=== PATIENT | female | born 1965 ===

== ENCOUNTER 2021-07-24 10:52 | Inpatient (IN) | payer OTHER ==
[2021-07-24] MEDS ORDERED: Sodium Chloride 0.9% 1000 ML 1,000 ML IV STA (11:32)
--- NOTE | 2021-07-24 11:32 | ERPHSYRPT ---
- History of Present Illness Time Seen by Provider: 07/24/21 11:25 Source: patient Exam Limitations: no limitations Patient Subjective Stated Complaint: PT states "I have been running a low temp at home and I was at school today and I got dizzy and went to the [facility]. They sent me here because they could not get a good blood pressure on me and I feel lightheaded and dizzy." Triage Nursing Assessment: Pt presented alert and oriented X 3, skin wpd Pt ambulates with a slow gait, able to speak in clear full sentences. Pt obese female short of breath when she moves. Pt resting comfortably on the cot, respirations come down when she rests on the cot. Physician History: This is a morbidly obese white female patient of Dr. Norton who presents with onset of dizziness with ambulation that came on relatively suddenly this morning. Patient states that she is chronically short of breath. But she does feel a bit more short of breath today. He is not on any anticoagulation therapy. She has no bleeding or clotting disorders. She has not noticed any bleeding of any kind anywhere. She denies chest pain. She denies abdominal pain. She was seen at the [facility] and they were having trouble obtaining a blood pressure. Upon arrival into the emergency department her heart rate was in the 115 to 125 bpm range. Her systolic blood pressure was 72. Patient denies any new medications. She has no blood pressure issues. Timing/Duration: today Severity: moderate Deficits: weak (And dizzy) Baseline/Normal Cognition: alert oriented x 3 Current Cognition: alert oriented x 3 Baseline Gait: walks w/o assistance Associated Symptoms: weakness, other (Dizziness) Allergies/Adverse Reactions: No Known Drug Allergies Allergy (Verified 07/24/21 11:15) Home Medications: No Reportable Medications [No Reported Medications] 07/24/21 [History] Hx Tetanus, Diphtheria Vaccination/Date Given: No Hx Influenza Vaccination/Date Given: Yes Hx Pneumococcal Vaccination/Date Given: No Immunizations Up to Date: Yes Travel Risk - International Travel Have you traveled outside of the country in past 3 weeks: No - Coronavirus Screening Are you exhibiting any of the following symptoms?: No Close contact with a COVID-19 positive Pt in past 14-21 Days: No - Vaccine Status Have you recieved a Covid-19 vaccination: Yes 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: [employer] - Review of Systems Constitutional: Weakness Eyes: No Symptoms Ears, Nose, & Throat: No Symptoms Respiratory: No Symptoms Cardiac: No Symptoms Abdominal/Gastrointestinal: No Symptoms Genitourinary Symptoms: No Symptoms Musculoskeletal: No Symptoms Skin: No Symptoms Neurological: Dizziness Psychological: No Symptoms Endocrine: No Symptoms Hematologic/Lymphatic: No Symptoms Immunological/Allergic: No Symptoms All Other Systems: Reviewed and Negative - Past Medical History Pertinent Past Medical History: No - Past Surgical History Past Surgical History: Yes Other Surgical History: jose - Social History Smoking Status: Never smoker Exposure to second hand smoke: No Drug Use: none Patient Lives Alone: No - Female History Hx Last Menstrual Period: 10/26/2020 Hx Now: No - Nursing Vital Signs Nursing Vital Signs: Initial Vital Signs Temperature 97.6 F 07/24/21 11:04 Pulse Rate 125 H 07/24/21 11:04 Respiratory Rate 28 H 07/24/21 11:04 Blood Pressure 70/48 07/24/21 11:04 O2 Sat by Pulse Oximetry 96 07/24/21 11:04 Pain Scale Pain Intensity 5 - Matilda Coma Scale Best Eye Response (Matilda): (4) open spontaneously Best Verbal Response ([place]): (5) oriented Best Motor Response (Matilda): (6) obeys commands Matilda Total: 15 - Physical Exam General Appearance: no apparent distress, alert, anxiety, obese Eye Exam: bilateral eye: normal inspection, PERRL, EOMI Ears, Nose, Throat Exam: dry mucous membranes Neck Exam: normal inspection, non-tender, supple, full range of motion Respiratory: normal breath sounds, lungs clear, No chest tenderness, No respiratory distress, No airway intact Cardiovascular: tachycardia Gastrointestinal: soft, normal bowel sounds, No tenderness Pelvic Exam: not done Rectal Exam: not done Back Exam: normal inspection, normal range of motion, No CVA tenderness, No vertebral tenderness Extremity Exam: normal inspection, normal range of motion, pelvis stable Mental Status: alert, 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 There is no comparison EKG available) Ordered Tests: Active Orders 24 hr Category Date Time Status Clean Catch Urine Specimen STAT Care 07/24/21 11:32 Active EKG-ER Only STAT Care 07/24/21 11:32 Active IV Insertion STAT Care 07/24/21 11:32 Active CBC W DIFF Stat Lab 07/24/21 11:50 Completed CMP Stat Lab 07/24/21 11:50 Completed MAGNESIUM Stat Lab 07/24/21 11:50 Completed Manual Differential NC Stat Lab 07/24/21 11:50 Completed TROPONIN Q3H Lab 07/24/21 11:50 Completed TROPONIN Q3H Lab 07/24/21 14:45 Ordered TROPONIN Q3H Lab 07/24/21 17:45 Ordered TROPONIN Q3H Lab 07/24/21 20:45 Ordered TROPONIN Q3H Lab 07/24/21 23:45 Ordered UA W/RFX UR CULTURE Stat Lab 07/24/21 11:32 Ordered Urine Triage Profile Stat Lab 07/24/21 11:32 Ordered Transfer Order Routine Transfer 07/24/21 Ordered Medication Summary Generic Name Dose Route Start Last Admin Trade Name Freq PRN Reason Stop Dose Admin Magnesium Oxide 400 mg 07/25/21 12:54 07/24/21 13:08 Mag-Ox 400 PO 07/25/21 12:55 400 mg STAT ONE Administration Discontinued Medications Generic Name Dose Route Start Last Admin Trade Name Freq PRN Reason Stop Dose Admin Sodium Chloride 1,000 mls @ 999 mls/hr 07/24/21 11:32 07/24/21 12:50 Sodium Chloride 0.9% 1000 Ml IV 07/24/21 12:32 Infused .Q1H1M STA Infusion Sodium Chloride Confirm 07/24/21 11:37 Sodium Chloride 0.9% 1000 Ml Administered 07/24/21 11:38 Dose 1,000 mls @ ud .ROUTE .STK-MED ONE Magnesium Oxide Confirm 07/24/21 13:07 Mag-Ox 400 Administered 07/24/21 13:08 Dose 400 mg .ROUTE .STK-MED ONE Potassium Chloride 10 meq 07/24/21 12:54 07/24/21 13:08 Klor Con 10 Meq PO 07/24/21 12:55 10 meq STAT ONE Administration Potassium Chloride Confirm 07/24/21 13:07 Klor Con 10 Meq Administered 07/24/21 13:08 Dose 10 meq PO .STK-MED ONE Lab/Rad Data: Laboratory Result Diagrams 07/24/21 11:50 07/24/21 11:50 Laboratory Results 07/24/21 07/24/21 07/24/21 Range/Units 12:48 12:45 12:23 WBC (4.0-10.5) K/mm3 RBC (4.1-5.4) M/mm3 Hgb (12.0-16.0) gm/dl Hct (35-47) % MCV (78-100) fl MCH (26-32) pg MCHC (32-36) g/dl RDW (11.5-14.0) % Plt Count (150-450) K/mm3 MPV (7.5-11.0) fl Segmented Neutrophils (36.0-66.0) % Band Neutrophils (0.0-2.0) % Lymphocytes (Manual) (24-44) % Monocytes (Manual) (0.0-12.0) % Hypochromia Platelet Estimate (NORMAL) RBC Morphology Polychromasia Anisocytosis Sodium (137-145) mmol/L Potassium (3.5-5.1) mmol/L Chloride (98-107) mmol/L Carbon Dioxide (22-30) mmol/L Anion Gap (5-15) MEQ/L BUN (7-17) mg/dL Creatinine (0.52-1.04) mg/dL Estimated GFR ML/MIN Glucose (74-106) mg/dL Calcium (8.4-10.2) mg/dL Magnesium (1.6-2.3) mg/dL Total Bilirubin (0.2-1.3) mg/dL AST (14-36) U/L ALT (0-35) U/L Alkaline Phosphatase (38-126) U/L Troponin I (0.000-0.034) ng/mL Serum Total Protein (6.3-8.2) g/dL Albumin (3.5-5.0) g/dL SARS-CoV-2 (PCR) NEGATIVE (NEGATIVE) ABO Group A Rh Factor POSITIVE Antibody Screen NEGATIVE (NEGATIVE) Crossmatch COMPATIBLE COMPATIBLE (COMPATIBLE) 07/24/21 07/24/21 07/24/21 Range/Units 11:50 11:50 11:50 WBC 13.2 H (4.0-10.5) K/mm3 RBC 3.14 L (4.1-5.4) M/mm3 Hgb 7.7 L (12.0-16.0) gm/dl Hct 26.2 L (35-47) % MCV 83.4 (78-100) fl MCH 24.5 L (26-32) pg MCHC 29.4 L (32-36) g/dl RDW 16.0 H (11.5-14.0) % Plt Count 488 H (150-450) K/mm3 MPV 9.1 (7.5-11.0) fl Segmented Neutrophils 43 (36.0-66.0) % Band Neutrophils 53 H (0.0-2.0) % Lymphocytes (Manual) 3 L (24-44) % Monocytes (Manual) 1 (0.0-12.0) % Hypochromia 1+ Platelet Estimate INCREASED (NORMAL) RBC Morphology ABNORMAL Polychromasia 1+ Anisocytosis 1+ Sodium 128 L (137-145) mmol/L Potassium 3.3 L (3.5-5.1) mmol/L Chloride 98 (98-107) mmol/L Carbon Dioxide 12 L* (22-30) mmol/L Anion Gap 20.4 H (5-15) MEQ/L BUN 19 H (7-17) mg/dL Creatinine 1.63 H (0.52-1.04) mg/dL Estimated GFR 35.1 ML/MIN Glucose 386 H (74-106) mg/dL Calcium 8.9 (8.4-10.2) mg/dL Magnesium 1.5 L (1.6-2.3) mg/dL Total Bilirubin 1.10 (0.2-1.3) mg/dL AST 27 (14-36) U/L ALT 25 (0-35) U/L Alkaline Phosphatase 309 H (38-126) U/L Troponin I < 0.012 (0.000-0.034) ng/mL Serum Total Protein 7.4 (6.3-8.2) g/dL Albumin 3.4 L (3.5-5.0) g/dL SARS-CoV-2 (PCR) (NEGATIVE) ABO Group Rh Factor Antibody Screen (NEGATIVE) Crossmatch (COMPATIBLE) - Progress Progress: improved Progress Note: 07/24/21 12:30 Medical decision making: This patient has symptomatic anemia. She is tachycardic she has low blood pressure and she is dizzy. She is also short of breath. I spoke with Dr. David Seaman who is covering for Dr. Norton today. She accepts her for admission. We will transfuse 2 units of blood and recheck her hemoglobin hematocrit tomorrow morning. 07/24/21 14:17 Patient has been asked 3 times to urinate force and is unable to do so. Patient does not want a straight catheterization. She is refusing. Discussed with Dr.: Shad Counseled pt/family regarding: lab results, diagnosis - Departure Departure Disposition: In-patient Admission Clinical Impression: Symptomatic anemia, Hypotension, Sinus tachycardia, Dizziness, Renal insufficiency, Hyponatremia, Hypokalemia, Hypomagnesemia, Hyperglycemia Condition: Fair Critical Care Time: Yes Critical Care Time(excluding separately billable procedures): Critical 30-74 mins Referrals: ADEBAYO NORTON MD [Primary Care Provider] -
[2021-07-24] MEDS ORDERED: Sodium Chloride 0.9% 1000 ML 1,000 ML ONE ×2 (11:37→14:28)
[2021-07-24 11:59] LABS: Hematocrit 26.2 % (35-47); Hemoglobin 7.7 gm/dl (12.0-16.0); Mean Cell Volume 83.4 fl (78-100); Mean Corpuscular Hemoglobin 24.5 pg (26-32); Mean Corpuscular Hgb Concent. 29.4 g/dl (32-36); Mean Platelet Volume 9.1 fl (7.5-11.0); Platelet Count 488 K/mm3 (150-450); Red Blood Count 3.14 M/mm3 (4.1-5.4); White Blood Count 13.2 K/mm3 (4.0-10.5)
[2021-07-24 12:08] LABS: ALBUMIN 3.4 g/dL (3.5-5.0); ANION GAP 20.4 MEQ/L (5-15); BILIRUBIN,TOTAL 1.1 mg/dL (0.2-1.3); Calcium 8.9 mg/dL (8.4-10.2); Creatinine 1 1.63 mg/dL (0.52-1.04); EST GLOMERULAR FILTRATION RATE 35.1 ML/MIN; MAGNESIUM 1.5 mg/dL (1.6-2.3); Potassium 3.3 mmol/L (3.5-5.1); Total Protein 7.4 g/dL (6.3-8.2)
[2021-07-24 12:34] LABS: BAND 53 % (0.0-2.0); Lymphocytes 3 % (24-44); Monocyte 1 % (0.0-12.0); Neutrophils 43 % (36.0-66.0); Platelet Estimate INCREASED (NORMAL); Total Cells Counted 100
[2021-07-24 12:35] LABS: ANISOCYTOSIS 1+; Hypochromia 1+; Polychromasia 1+
[2021-07-24] MEDS ORDERED: Klor Con 10 MEQ PO ONE ×2 (12:54→13:07)
[2021-07-24] MEDS ORDERED: MAG-OX 400 ONE (13:07)
[2021-07-24 13:36] LABS: ABO TYPING A; Antibody Screen NEGATIVE (NEGATIVE); RH TYPING POSITIVE
[2021-07-24 13:37] LABS: CROSS MATCH (PRBC) COMPATIBLE (COMPATIBLE)
[2021-07-24] MEDS ORDERED: TYLENOL 325 MG PO PRN (17:12)
[2021-07-24] MEDS ORDERED: Zofran 4 MG/2 ML VIAL IV PRN (17:12)
[2021-07-24 17:33] LABS: Appearance TURBID (CLEAR); Bacteria FEW /HPF (NEGATIVE); Bilirubin NEGATIVE (NEGATIVE); Blood MODERATE Ery/ul (0-5); Epithelial Cells MANY /HPF (FEW); Glucose 150 mg/dL (NEGATIVE); Ketones NEGATIVE (NEGATIVE); Leukocyte Esterase MODERATE (NEGATIVE); Mucus SLIGHT /HPF (NEGATIVE); Nitrite NEGATIVE (NEGATIVE); Protein,Urine Dip 100 (Negative); Urobilinogen NEGATIVE mg/dL (0-1); WBC >100 /HPF (0-5)
[2021-07-24 17:42] LABS: Amphetamine,Urine POSITIVE (NEGATIVE); Barbiturate,Urine NEGATIVE (NEGATIVE); Benzodiazepine,Urine NEGATIVE (NEGATIVE); Cocaine,Urine NEGATIVE (NEGATIVE); Methadone,Urine NEGATIVE (NEGATIVE); Opiate,Urine NEGATIVE (NEGATIVE); PCP,Urine NEGATIVE (NEGATIVE); THC,Urine NEGATIVE (NEGATIVE)
[2021-07-24] MEDS: Sodium Chloride 0.9% 1000 ML 1,000 ML IV SCH (18:35)
[2021-07-24] MEDS: PROTONIX 40 MG IV IV SCH (18:35)
[2021-07-24 19:56] LABS: Hematocrit 27.9 % (35-47); Hemoglobin 8.6 gm/dl (12.0-16.0)
[2021-07-24] MEDS: HUMULIN R SQ PRN (21:15)
[2021-07-25] MEDS: Sodium Chloride 0.9% 1000 ML 1,000 ML IV SCH (04:08)
[2021-07-25 05:18] LABS: Absolute Neutrophil Ct (ANC) 15.63 (1.4-6.9); BASOPHIL % 0.2 % (0.0-0.4); Basophil (Absolute #) 0.04 (0-0.4); Eosinophil % 0.6 % (0.00-5.0); Hematocrit 26.9 % (35-47); Hemoglobin 8.1 gm/dl (12.0-16.0); Lymphocyte (Absolute #) 1.49 (1.0-4.6); Lymphocytes % 8.4 % (24.0-44.0); Mean Cell Volume 82.5 fl (78-100); Mean Corpuscular Hemoglobin 24.8 pg (26-32); Mean Corpuscular Hgb Concent. 30.1 g/dl (32-36); Monocyte (Absolute #) 0.55 (0.0-1.3); Monocytes % 3.1 % (0.0-12.0); Neutrophil % 87.7 % (36.0-66.0); Platelet Count 419 K/mm3 (150-450); Red Blood Count 3.26 M/mm3 (4.1-5.4); Red Cell Distribution Width 15.9 % (11.5-14.0); White Blood Count 17.8 K/mm3 (4.0-10.5)
[2021-07-25 05:59] LABS: ALBUMIN 3.2 g/dL (3.5-5.0); ANION GAP 17.7 MEQ/L (5-15); BILIRUBIN,TOTAL 0.8 mg/dL (0.2-1.3); Calcium 8.6 mg/dL (8.4-10.2); Creatinine 1 2.02 mg/dL (0.52-1.04); EST GLOMERULAR FILTRATION RATE 27.4 ML/MIN; Potassium 4.4 mmol/L (3.5-5.1); Total Protein 7.1 g/dL (6.3-8.2)
[2021-07-25] MEDS: ROCEPHIN 1 Gm-D5w 50 ml Bag** 1 G/50 ML IVPB IV SCH (08:24)
[2021-07-25] MEDS: HUMULIN R SQ PRN ×4 (08:29→21:18)
--- NOTE | 2021-07-25 09:11 | PCM.HP ---
History of Present Illness - Chief Complaint Chief Complaint: Symptomatic anemia History of Present Illness: is a 55 year old female pt of Dr. Ngo, hasn't seen a physician in 5 years, who was admitted through ER with dizziness and hypotension, found to be anemic and transfused. Her hgb was 7.7 initially, and after 2 units PRBC was 8.6. This morning it is down to 8.1. She denies any melena or hematochezia but does take naproxen every morning. Her LMP was 10/22, but the previous one before that was 12/23. She was found to have A1c of 13.14, but denies any history of diabetes previously. She was exposed to a covid + student 8d ago; has tested negative x 2 since then. Fully vaccinated (re: covid). - Review of Systems Constitutional: Fever (6d ago to 101.8 and has continued intermittently.), Chills Respiratory: Cough, Short Of Breath Cardiac: Edema (LE if up a lot and with IV fluids; watches her salt) Abdominal/Gastrointestinal: Constipation (loos stools last night after having Mg) Neurological: Headache Psychological: No Anxiety, No Depression, No Suicidal Ideations, No Homicidal Ideations Medications & Allergies Home Medications: Home Medication List Fexofenadine/Pseudoephedrine [Antonieta-D 24 Hour Tablet] 1 each PO DAILY 07/24/21 [History Confirmed 07/24/21] Allergies/Adverse Reactions: Allergies Allergy/AdvReac Type Severity Reaction Status Date / Time No Known Drug Allergies Allergy Verified 07/24/21 17:19 - Past Medical History Past Medical History: No - Female History Hx Last Menstrual Period: 10/26/2020 Are you now?: No - Past Surgical History Past Surgical History: Yes GI Surgical History: Cholecystectomy Musculskeletal Surgical Hx: Orthopedic Surgery Other Surgical History: jose, bone spurs from right - Social History Smoking Status: Never smoker Exposure to second hand smoke: No Alcohol: Rarely Drug Use: none - Physical Exam Vital Signs: Vital Signs - 24 hr Temp Pulse Resp BP Pulse Ox 07/25/21 07:22 96.8 F 80 18 112/59 97 07/25/21 04:00 96.9 F 98 H 20 95/54 95 07/25/21 00:00 97.5 F 108 H 27 H 96/58 94 L 07/24/21 20:00 97.3 F 106 H 20 97/55 98 07/24/21 17:20 97.5 F 112 H 22 97/56 96 07/24/21 16:55 97.8 F 104 H 20 100/79 98 07/24/21 14:30 97.5 F 112 H 24 96/56 98 07/24/21 14:23 96 07/24/21 13:37 118 H 22 76/58 98 07/24/21 12:05 97.6 F 110 H 20 79/51 98 07/24/21 11:04 97.6 F 125 H 28 H 70/48 96 General Appearance: no apparent distress, obese (morbidly) Neurologic Exam: oriented x 3, cooperative, normal mood/affect Eye Exam: eyes nml inspection Ears, Nose, Throat Exam: moist mucous membranes Neck Exam: normal inspection, non-tender, No lymphadenopathy Respiratory Exam: normal breath sounds, lungs clear, No crackles/rales, No rhonchi, No wheezing Cardiovascular Exam: regular rate/rhythm, normal heart sounds, No murmur Gastrointestinal/Abdomen Exam: soft, normal bowel sounds, No tenderness, No distention, No mass, No guarding, No rebound Back Exam: normal inspection, No CVA tenderness, No rash Extremity Exam: normal inspection, swelling (1+ pretibial edema on L) Skin Exam: normal color, warm, dry, No rash Results - Labs Lab/Micro Results: Lab Results-Last 24 Hours 07/24/21 07/24/21 07/24/21 Range/Units 11:50 11:50 11:50 WBC 13.2 H (4.0-10.5) K/mm3 RBC 3.14 L (4.1-5.4) M/mm3 Hgb 7.7 L (12.0-16.0) gm/dl Hct 26.2 L (35-47) % MCV 83.4 (78-100) fl MCH 24.5 L (26-32) pg MCHC 29.4 L (32-36) g/dl RDW 16.0 H (11.5-14.0) % Plt Count 488 H (150-450) K/mm3 MPV 9.1 (7.5-11.0) fl Gran % (36.0-66.0) % Eos # (Auto) (0-0.5) Absolute Lymphs (auto) (1.0-4.6) Absolute Monos (auto) (0.0-1.3) Lymphocytes % (24.0-44.0) % Monocytes % (0.0-12.0) % Eosinophils % (0.00-5.0) % Basophils % (0.0-0.4) % Absolute Granulocytes (1.4-6.9) Segmented Neutrophils 43 (36.0-66.0) % Band Neutrophils 53 H (0.0-2.0) % Lymphocytes (Manual) 3 L (24-44) % Monocytes (Manual) 1 (0.0-12.0) % Basophils # (0-0.4) Hypochromia 1+ Platelet Estimate INCREASED (NORMAL) RBC Morphology ABNORMAL Polychromasia 1+ Anisocytosis 1+ Sodium 128 L (137-145) mmol/L Potassium 3.3 L (3.5-5.1) mmol/L Chloride 98 (98-107) mmol/L Carbon Dioxide 12 L* (22-30) mmol/L Anion Gap 20.4 H (5-15) MEQ/L BUN 19 H (7-17) mg/dL Creatinine 1.63 H (0.52-1.04) mg/dL Estimated GFR 35.1 ML/MIN Glucose 386 H (74-106) mg/dL POC Glucometer (74 to 106) mg/dL Hemoglobin A1c (4.5-6.0) % Calcium 8.9 (8.4-10.2) mg/dL Magnesium 1.5 L (1.6-2.3) mg/dL Total Bilirubin 1.10 (0.2-1.3) mg/dL AST 27 (14-36) U/L ALT 25 (0-35) U/L Alkaline Phosphatase 309 H (38-126) U/L Troponin I < 0.012 (0.000-0.034) ng/mL Serum Total Protein 7.4 (6.3-8.2) g/dL Albumin 3.4 L (3.5-5.0) g/dL Urine Color (YELLOW) Urine Appearance (CLEAR) Urine pH (5-6) Ur Specific [place] (1.005-1.025) Urine Protein (Negative) Urine Ketones (NEGATIVE) Urine Blood (0-5) Milind/ul Urine Nitrite (NEGATIVE) Urine Bilirubin (NEGATIVE) Urine Urobilinogen (0-1) mg/dL Ur Leukocyte Esterase (NEGATIVE) Urine WBC (Auto) (0-5) /HPF Urine RBC (Auto) (0-2) /HPF U Epithel Cells (Auto) (FEW) /HPF Urine Bacteria (Auto) (NEGATIVE) /HPF Urine Mucus (Auto) (NEGATIVE) /HPF Urine Culture Reflexed (NO) Urine Glucose (NEGATIVE) mg/dL Urine Opiates Level (NEGATIVE) Ur Methadone (NEGATIVE) Urine Barbiturates (NEGATIVE) Ur Phencyclidine (PCP) (NEGATIVE) Urine Amphetamine (NEGATIVE) U Benzodiazepine Level (NEGATIVE) Urine Cocaine (NEGATIVE) Urine Marijuana (THC) (NEGATIVE) SARS-CoV-2 (PCR) (NEGATIVE) ABO Group Rh Factor Antibody Screen (NEGATIVE) Crossmatch (COMPATIBLE) 07/24/21 07/24/21 07/24/21 Range/Units 11:53 12:23 12:45 WBC (4.0-10.5) K/mm3 RBC (4.1-5.4) M/mm3 Hgb (12.0-16.0) gm/dl Hct (35-47) % MCV (78-100) fl MCH (26-32) pg MCHC (32-36) g/dl RDW (11.5-14.0) % Plt Count (150-450) K/mm3 MPV (7.5-11.0) fl Gran % (36.0-66.0) % Eos # (Auto) (0-0.5) Absolute Lymphs (auto) (1.0-4.6) Absolute Monos (auto) (0.0-1.3) Lymphocytes % (24.0-44.0) % Monocytes % (0.0-12.0) % Eosinophils % (0.00-5.0) % Basophils % (0.0-0.4) % Absolute Granulocytes (1.4-6.9) Segmented Neutrophils (36.0-66.0) % Band Neutrophils (0.0-2.0) % Lymphocytes (Manual) (24-44) % Monocytes (Manual) (0.0-12.0) % Basophils # (0-0.4) Hypochromia Platelet Estimate (NORMAL) RBC Morphology Polychromasia Anisocytosis Sodium (137-145) mmol/L Potassium (3.5-5.1) mmol/L Chloride (98-107) mmol/L Carbon Dioxide (22-30) mmol/L Anion Gap (5-15) MEQ/L BUN (7-17) mg/dL Creatinine (0.52-1.04) mg/dL Estimated GFR ML/MIN Glucose (74-106) mg/dL POC Glucometer (74 to 106) mg/dL Hemoglobin A1c 13.14 H (4.5-6.0) % Calcium (8.4-10.2) mg/dL Magnesium (1.6-2.3) mg/dL Total Bilirubin (0.2-1.3) mg/dL AST (14-36) U/L ALT (0-35) U/L Alkaline Phosphatase (38-126) U/L Troponin I (0.000-0.034) ng/mL Serum Total Protein (6.3-8.2) g/dL Albumin (3.5-5.0) g/dL Urine Color (YELLOW) Urine Appearance (CLEAR) Urine pH (5-6) Ur Specific [place] (1.005-1.025) Urine Protein (Negative) Urine Ketones (NEGATIVE) Urine Blood (0-5) Milind/ul Urine Nitrite (NEGATIVE) Urine Bilirubin (NEGATIVE) Urine Urobilinogen (0-1) mg/dL Ur Leukocyte Esterase (NEGATIVE) Urine WBC (Auto) (0-5) /HPF Urine RBC (Auto) (0-2) /HPF U Epithel Cells (Auto) (FEW) /HPF Urine Bacteria (Auto) (NEGATIVE) /HPF Urine Mucus (Auto) (NEGATIVE) /HPF Urine Culture Reflexed (NO) Urine Glucose (NEGATIVE) mg/dL Urine Opiates Level (NEGATIVE) Ur Methadone (NEGATIVE) Urine Barbiturates (NEGATIVE) Ur Phencyclidine (PCP) (NEGATIVE) Urine Amphetamine (NEGATIVE) U Benzodiazepine Level (NEGATIVE) Urine Cocaine (NEGATIVE) Urine Marijuana (THC) (NEGATIVE) SARS-CoV-2 (PCR) (NEGATIVE) ABO Group A Rh Factor POSITIVE Antibody Screen NEGATIVE (NEGATIVE) Crossmatch COMPATIBLE COMPATIBLE (COMPATIBLE) 07/24/21 07/24/21 07/24/21 Range/Units 12:48 15:25 17:20 WBC (4.0-10.5) K/mm3 RBC (4.1-5.4) M/mm3 Hgb (12.0-16.0) gm/dl Hct (35-47) % MCV (78-100) fl MCH (26-32) pg MCHC (32-36) g/dl RDW (11.5-14.0) % Plt Count (150-450) K/mm3 MPV (7.5-11.0) fl Gran % (36.0-66.0) % Eos # (Auto) (0-0.5) Absolute Lymphs (auto) (1.0-4.6) Absolute Monos (auto) (0.0-1.3) Lymphocytes % (24.0-44.0) % Monocytes % (0.0-12.0) % Eosinophils % (0.00-5.0) % Basophils % (0.0-0.4) % Absolute Granulocytes (1.4-6.9) Segmented Neutrophils (36.0-66.0) % Band Neutrophils (0.0-2.0) % Lymphocytes (Manual) (24-44) % Monocytes (Manual) (0.0-12.0) % Basophils # (0-0.4) Hypochromia Platelet Estimate (NORMAL) RBC Morphology Polychromasia Anisocytosis Sodium (137-145) mmol/L Potassium (3.5-5.1) mmol/L Chloride (98-107) mmol/L Carbon Dioxide (22-30) mmol/L Anion Gap (5-15) MEQ/L BUN (7-17) mg/dL Creatinine (0.52-1.04) mg/dL Estimated GFR ML/MIN Glucose (74-106) mg/dL POC Glucometer (74 to 106) mg/dL Hemoglobin A1c (4.5-6.0) % Calcium (8.4-10.2) mg/dL Magnesium (1.6-2.3) mg/dL Total Bilirubin (0.2-1.3) mg/dL AST (14-36) U/L ALT (0-35) U/L Alkaline Phosphatase (38-126) U/L Troponin I < 0.012 (0.000-0.034) ng/mL Serum Total Protein (6.3-8.2) g/dL Albumin (3.5-5.0) g/dL Urine Color LEONARDO (YELLOW) Urine Appearance TURBID (CLEAR) Urine pH 5.0 (5-6) Ur Specific [place] 1.020 (1.005-1.025) Urine Protein 100 (Negative) Urine Ketones NEGATIVE (NEGATIVE) Urine Blood MODERATE (0-5) Milind/ul Urine Nitrite NEGATIVE (NEGATIVE) Urine Bilirubin NEGATIVE (NEGATIVE) Urine Urobilinogen NEGATIVE (0-1) mg/dL Ur Leukocyte Esterase MODERATE (NEGATIVE) Urine WBC (Auto) >100 (0-5) /HPF Urine RBC (Auto) 16-25 (0-2) /HPF U Epithel Cells (Auto) MANY (FEW) /HPF Urine Bacteria (Auto) FEW (NEGATIVE) /HPF Urine Mucus (Auto) SLIGHT (NEGATIVE) /HPF Urine Culture Reflexed YES (NO) Urine Glucose 150 (NEGATIVE) mg/dL Urine Opiates Level (NEGATIVE) Ur Methadone (NEGATIVE) Urine Barbiturates (NEGATIVE) Ur Phencyclidine (PCP) (NEGATIVE) Urine Amphetamine (NEGATIVE) U Benzodiazepine Level (NEGATIVE) Urine Cocaine (NEGATIVE) Urine Marijuana (THC) (NEGATIVE) SARS-CoV-2 (PCR) NEGATIVE (NEGATIVE) ABO Group Rh Factor Antibody Screen (NEGATIVE) Crossmatch (COMPATIBLE) 07/24/21 07/24/21 07/24/21 Range/Units 17:20 19:48 19:48 WBC (4.0-10.5) K/mm3 RBC (4.1-5.4) M/mm3 Hgb 8.6 L (12.0-16.0) gm/dl Hct 27.9 L (35-47) % MCV (78-100) fl MCH (26-32) pg MCHC (32-36) g/dl RDW (11.5-14.0) % Plt Count (150-450) K/mm3 MPV (7.5-11.0) fl Gran % (36.0-66.0) % Eos # (Auto) (0-0.5) Absolute Lymphs (auto) (1.0-4.6) Absolute Monos (auto) (0.0-1.3) Lymphocytes % (24.0-44.0) % Monocytes % (0.0-12.0) % Eosinophils % (0.00-5.0) % Basophils % (0.0-0.4) % Absolute Granulocytes (1.4-6.9) Segmented Neutrophils (36.0-66.0) % Band Neutrophils (0.0-2.0) % Lymphocytes (Manual) (24-44) % Monocytes (Manual) (0.0-12.0) % Basophils # (0-0.4) Hypochromia Platelet Estimate (NORMAL) RBC Morphology Polychromasia Anisocytosis Sodium (137-145) mmol/L Potassium (3.5-5.1) mmol/L Chloride (98-107) mmol/L Carbon Dioxide (22-30) mmol/L Anion Gap (5-15) MEQ/L BUN (7-17) mg/dL Creatinine (0.52-1.04) mg/dL Estimated GFR ML/MIN Glucose 444 H (74-106) mg/dL POC Glucometer (74 to 106) mg/dL Hemoglobin A1c (4.5-6.0) % Calcium (8.4-10.2) mg/dL Magnesium (1.6-2.3) mg/dL Total Bilirubin (0.2-1.3) mg/dL AST (14-36) U/L ALT (0-35) U/L Alkaline Phosphatase (38-126) U/L Troponin I (0.000-0.034) ng/mL Serum Total Protein (6.3-8.2) g/dL Albumin (3.5-5.0) g/dL Urine Color (YELLOW) Urine Appearance (CLEAR) Urine pH (5-6) Ur Specific [place] (1.005-1.025) Urine Protein (Negative) Urine Ketones (NEGATIVE) Urine Blood (0-5) Milind/ul Urine Nitrite (NEGATIVE) Urine Bilirubin (NEGATIVE) Urine Urobilinogen (0-1) mg/dL Ur Leukocyte Esterase (NEGATIVE) Urine WBC (Auto) (0-5) /HPF Urine RBC (Auto) (0-2) /HPF U Epithel Cells (Auto) (FEW) /HPF Urine Bacteria (Auto) (NEGATIVE) /HPF Urine Mucus (Auto) (NEGATIVE) /HPF Urine Culture Reflexed (NO) Urine Glucose (NEGATIVE) mg/dL Urine Opiates Level NEGATIVE (NEGATIVE) Ur Methadone NEGATIVE (NEGATIVE) Urine Barbiturates NEGATIVE (NEGATIVE) Ur Phencyclidine (PCP) NEGATIVE (NEGATIVE) Urine Amphetamine POSITIVE (NEGATIVE) U Benzodiazepine Level NEGATIVE (NEGATIVE) Urine Cocaine NEGATIVE (NEGATIVE) Urine Marijuana (THC) NEGATIVE (NEGATIVE) SARS-CoV-2 (PCR) (NEGATIVE) ABO Group Rh Factor Antibody Screen (NEGATIVE) Crossmatch (COMPATIBLE) 07/25/21 07/25/21 07/25/21 Range/Units 04:57 04:57 04:57 WBC 17.8 H (4.0-10.5) K/mm3 RBC 3.26 L (4.1-5.4) M/mm3 Hgb 8.1 L (12.0-16.0) gm/dl Hct 26.9 L (35-47) % MCV 82.5 (78-100) fl MCH 24.8 L (26-32) pg MCHC 30.1 L (32-36) g/dl RDW 15.9 H (11.5-14.0) % Plt Count 419 (150-450) K/mm3 MPV 9.0 (7.5-11.0) fl Gran % 87.7 H (36.0-66.0) % Eos # (Auto) 0.10 (0-0.5) Absolute Lymphs (auto) 1.49 (1.0-4.6) Absolute Monos (auto) 0.55 (0.0-1.3) Lymphocytes % 8.4 L (24.0-44.0) % Monocytes % 3.1 (0.0-12.0) % Eosinophils % 0.6 (0.00-5.0) % Basophils % 0.2 (0.0-0.4) % Absolute Granulocytes 15.63 H (1.4-6.9) Segmented Neutrophils (36.0-66.0) % Band Neutrophils (0.0-2.0) % Lymphocytes (Manual) (24-44) % Monocytes (Manual) (0.0-12.0) % Basophils # 0.04 (0-0.4) Hypochromia Platelet Estimate (NORMAL) RBC Morphology Polychromasia Anisocytosis Sodium 129 L (137-145) mmol/L Potassium 4.4 D (3.5-5.1) mmol/L Chloride 99 (98-107) mmol/L Carbon Dioxide 17 L (22-30) mmol/L Anion Gap 17.7 H (5-15) MEQ/L BUN 26 H (7-17) mg/dL Creatinine 2.02 H (0.52-1.04) mg/dL Estimated GFR 27.4 ML/MIN Glucose 297 H (74-106) mg/dL POC Glucometer (74 to 106) mg/dL Hemoglobin A1c (4.5-6.0) % Calcium 8.6 (8.4-10.2) mg/dL Magnesium 1.6 (1.6-2.3) mg/dL Total Bilirubin 0.80 (0.2-1.3) mg/dL AST 22 (14-36) U/L ALT 16 (0-35) U/L Alkaline Phosphatase 230 H (38-126) U/L Troponin I (0.000-0.034) ng/mL Serum Total Protein 7.1 (6.3-8.2) g/dL Albumin 3.2 L (3.5-5.0) g/dL Urine Color (YELLOW) Urine Appearance (CLEAR) Urine pH (5-6) Ur Specific [place] (1.005-1.025) Urine Protein (Negative) Urine Ketones (NEGATIVE) Urine Blood (0-5) Milind/ul Urine Nitrite (NEGATIVE) Urine Bilirubin (NEGATIVE) Urine Urobilinogen (0-1) mg/dL Ur Leukocyte Esterase (NEGATIVE) Urine WBC (Auto) (0-5) /HPF Urine RBC (Auto) (0-2) /HPF U Epithel Cells (Auto) (FEW) /HPF Urine Bacteria (Auto) (NEGATIVE) /HPF Urine Mucus (Auto) (NEGATIVE) /HPF Urine Culture Reflexed (NO) Urine Glucose (NEGATIVE) mg/dL Urine Opiates Level (NEGATIVE) Ur Methadone (NEGATIVE) Urine Barbiturates (NEGATIVE) Ur Phencyclidine (PCP) (NEGATIVE) Urine Amphetamine (NEGATIVE) U Benzodiazepine Level (NEGATIVE) Urine Cocaine (NEGATIVE) Urine Marijuana (THC) (NEGATIVE) SARS-CoV-2 (PCR) (NEGATIVE) ABO Group Rh Factor Antibody Screen (NEGATIVE) Crossmatch (COMPATIBLE) 07/25/21 Range/Units 07:06 WBC (4.0-10.5) K/mm3 RBC (4.1-5.4) M/mm3 Hgb (12.0-16.0) gm/dl Hct (35-47) % MCV (78-100) fl MCH (26-32) pg MCHC (32-36) g/dl RDW (11.5-14.0) % Plt Count (150-450) K/mm3 MPV (7.5-11.0) fl Gran % (36.0-66.0) % Eos # (Auto) (0-0.5) Absolute Lymphs (auto) (1.0-4.6) Absolute Monos (auto) (0.0-1.3) Lymphocytes % (24.0-44.0) % Monocytes % (0.0-12.0) % Eosinophils % (0.00-5.0) % Basophils % (0.0-0.4) % Absolute Granulocytes (1.4-6.9) Segmented Neutrophils (36.0-66.0) % Band Neutrophils (0.0-2.0) % Lymphocytes (Manual) (24-44) % Monocytes (Manual) (0.0-12.0) % Basophils # (0-0.4) Hypochromia Platelet Estimate (NORMAL) RBC Morphology Polychromasia Anisocytosis Sodium (137-145) mmol/L Potassium (3.5-5.1) mmol/L Chloride (98-107) mmol/L Carbon Dioxide (22-30) mmol/L Anion Gap (5-15) MEQ/L BUN (7-17) mg/dL Creatinine (0.52-1.04) mg/dL Estimated GFR ML/MIN Glucose (74-106) mg/dL POC Glucometer 253 H (74 to 106) mg/dL Hemoglobin A1c (4.5-6.0) % Calcium (8.4-10.2) mg/dL Magnesium (1.6-2.3) mg/dL Total Bilirubin (0.2-1.3) mg/dL AST (14-36) U/L ALT (0-35) U/L Alkaline Phosphatase (38-126) U/L Troponin I (0.000-0.034) ng/mL Serum Total Protein (6.3-8.2) g/dL Albumin (3.5-5.0) g/dL Urine Color (YELLOW) Urine Appearance (CLEAR) Urine pH (5-6) Ur Specific [place] (1.005-1.025) Urine Protein (Negative) Urine Ketones (NEGATIVE) Urine Blood (0-5) Milind/ul Urine Nitrite (NEGATIVE) Urine Bilirubin (NEGATIVE) Urine Urobilinogen (0-1) mg/dL Ur Leukocyte Esterase (NEGATIVE) Urine WBC (Auto) (0-5) /HPF Urine RBC (Auto) (0-2) /HPF U Epithel Cells (Auto) (FEW) /HPF Urine Bacteria (Auto) (NEGATIVE) /HPF Urine Mucus (Auto) (NEGATIVE) /HPF Urine Culture Reflexed (NO) Urine Glucose (NEGATIVE) mg/dL Urine Opiates Level (NEGATIVE) Ur Methadone (NEGATIVE) Urine Barbiturates (NEGATIVE) Ur Phencyclidine (PCP) (NEGATIVE) Urine Amphetamine (NEGATIVE) U Benzodiazepine Level (NEGATIVE) Urine Cocaine (NEGATIVE) Urine Marijuana (THC) (NEGATIVE) SARS-CoV-2 (PCR) (NEGATIVE) ABO Group Rh Factor Antibody Screen (NEGATIVE) Crossmatch (COMPATIBLE) Accuchecks Date 07/25/21 Date 07/24/21 Time 22:00 Assessment/Plan (1) Anemia Current Visit: Yes Status: Acute Qualifiers: Anemia type: iron deficiency Iron deficiency anemia type: unspecified iron deficiency Qualified Code(s): D50.9 - Iron deficiency anemia, unspecified Assessment & Plan: will consult surgery for EGD/colonoscopy tomorrow. Chronic NSAID use. Code(s): D64.9 - ANEMIA, UNSPECIFIED (2) UTI (urinary tract infection) Current Visit: Yes Status: Acute Qualifiers: Urinary tract infection type: acute cystitis Assessment & Plan: started rocephin Code(s): N39.0 - URINARY TRACT INFECTION, SITE NOT SPECIFIED (3) Diabetes mellitus type II, uncontrolled Current Visit: Yes Status: Acute Qualifiers: Glycemic state: with hyperglycemia Qualified Code(s): E11.65 - Type 2 diabetes mellitus with hyperglycemia Assessment & Plan: start insulin here Code(s): E11.65 - TYPE 2 DIABETES MELLITUS WITH HYPERGLYCEMIA (4) Hyponatremia Current Visit: Yes Status: Acute Code(s): E87.1 - HYPO-OSMOLALITY AND HYPONATREMIA (5) Renal insufficiency Current Visit: Yes Status: Acute Assessment & Plan: unsure if any chronic component. may also be related to NSAIDs.
[2021-07-25] MEDS: PROTONIX 40 MG IV IV SCH (09:17)
[2021-07-25] MEDS ORDERED: FEXOFENADINE PO SCH (10:00)
[2021-07-25] MEDS ORDERED: PSEUDOEPHEDRINE PO SCH (10:00)
[2021-07-25] MEDS: CLARITIN 10 MG PO SCH (11:07)
--- NOTE | 2021-07-25 11:57 | XRAY ---
Exam: CT of the abdomen and pelvis without IV contrast from 07/25/2021. CTDI: 25.34 mGy Comparison: CT of the abdomen and pelvis without IV contrast from 01/01/2009. Indication: 55-year-old female with vaginal bleeding. Technique: Non-IV contrast axial images were obtained through the abdomen and pelvis. Reconstructed coronal and sagittal images were created and reviewed. No oral contrast was given. Findings: The patient is again morbidly obese. Some granulomatous calcifications are seen at the posterior margin of the right infrahilar projection. Otherwise, the visualized lung bases appear essentially unremarkable. Prominent epicardial fat pads are seen. There is some image degradation on a number of the images, perhaps due to patient motion, the patient's large size, or combination of both. In any event, there appears to be new moderate hepatosplenomegaly. Craniocaudal dimension of the right lobe of the liver is at least 24.2 cm on coronal image #98. Greatest craniocaudal dimension of the spleen is about 16.4 cm on coronal image #118. Both of these findings appear to be new from 01/01/2009. I believe there is some diffuse hepatic steatosis. Evaluation of the solid organs is limited without IV contrast and due to the CT artifact/noise. I see no gross intrahepatic biliary duct distention. The patient has undergone interval cholecystectomy with surgical clip seen in the subhepatic space. Scattered calcified splenic granulomas are seen consistent with old granulomatous disease. The pancreas appears grossly unremarkable. I cannot exclude a small diverticulum within the duodenal sweep on axial image #42. The adrenal glands appear of normal size and configuration. The right kidney has an altered transverse axis. It is relatively prominent in size. A new significant finding is the presence of multiple calcifications within the right kidney consistent with nephrolithiasis. I see no obvious hydronephrosis. The left kidney also reveals at least several calcifications within it consistent with nephrolithiasis. In addition, there is a 7.4 mm in diameter oval calcification within the left renal pelvis on axial image #41. I do not see significant left-sided hydronephrosis. However, there is significant scattered left renal cortical thinning and cortical scarring as compared to 01/01/2009 representing an unfavorable change. This indicates chronic renal disease. Greatest craniocaudal dimension of the left kidney on sagittal image #156 is 9.5 cm. A portion of the right psoas muscle within the lower abdomen appears larger than that seen on the left. The reason for this is not clear. There is no evidence of abdominal aortic aneurysm. No abnormal retroperitoneal lymphadenopathy is seen. Several small shoddy lymph nodes are seen between the IVC and distal abdominal aorta. These are nonspecific. I see no free intraperitoneal air or ventral abdominal wall hernia. The abdomen is protuberant with much intraperitoneal and subcutaneous fat. Within the pelvis, the uterus is anteflexed and appears of unremarkable size. A definite mass is not seen. The urinary bladder is mildly distended and appears grossly unremarkable. I see no gross abnormality of the ovaries on the axial or coronal images. I cannot clearly identify the appendix within the right lower quadrant, but no secondary findings of appendicitis are seen. There is no evidence of bowel obstruction. No free intraperitoneal fluid is seen within the pelvis. No other pelvic mass or definitive abnormal pelvic lymphadenopathy is seen. Each groin appears grossly unremarkable. The skeleton reveals no acute fracture or aggressive bone lesion. Bilateral facet joint arthropathy is seen at L4-L5 and L5-S1. Impression: 1. The study is limited, partly due to the lack of IV contrast. However, there is also some increased CT noise, perhaps due to the patient's large size, the patient breathing, or some combination of both. This decreases sharpness. 2. However, there are some definite new adverse changes as compared to the prior CT of the abdomen/pelvis from 01/01/2009. First, there is evidence of new moderate hepatosplenomegaly, as discussed above. Some hepatic steatosis may be present as well. Second, there is evidence of considerable new bilateral renal nephrolithiasis. I see no definite hydronephrosis, although there is a moderate sized calculus seen within the left renal pelvis on axial image #41. Furthermore, there is new scattered left renal cortical thinning and scarring suggesting chronic renal disease. This is not seen involving the right kidney. In fact, the right kidney appears somewhat prominent and has a transverse axis. Third, portions of the right psoas muscle are asymmetrically prominent within the lower abdomen as compared to the left psoas muscle. The reason for this latter finding is not clear. 3. Status post interval cholecystectomy. 4. Old healed granulomatous disease. 5. Probable small duodenal sweep diverticulum. 6. No other definite acute disease is seen, particularly within the pelvis. Correlate clinically regarding the patient's abnormal vaginal bleeding.
[2021-07-25 12:02] LABS: Slide Review 1 YES
[2021-07-25] MEDS ORDERED: MAG-OX 400 PO ONE (12:54)
--- NOTE | 2021-07-25 16:06 | XRAY ---
Exam: Transvaginal pelvic ultrasound from 07/25/2021. Comparison: CT of the abdomen and pelvis without IV contrast from 07/25/2021. Indication: 55-year-old female with abnormal vaginal bleeding; low hemoglobin. Findings: Transvaginal sonograms were obtained of the pelvis. The uterus is anteflexed measuring 7.5 cm in length, 3.7 cm in AP depth, and 5.0 cm in width. Uterine myometrium appeared homogeneous. AP dimension of the endometrium within the upper uterine segment measures 0.8 cm. A couple tiny cystic densities are seen adjacent to the endometrium within the lower uterine segment. There is no free intraperitoneal fluid within the cul-de-sac. The right ovary measures 3.6 cm x 2.0 cm x 2.5 cm and reveals a 1.6 cm x 1.5 cm x 1.3 cm cyst. Normal color blood flow and Doppler signal are seen within the right ovary. The left ovary was unable to be detected by the cardiopulmonary technologist. However, I believe this is seen on the CT study earlier today, and it appeared unremarkable. Impression: 1. Normal-sized and shaped anteflexed uterus. Maximum AP dimension of the endometrium within the upper uterine segment was 0.8 cm. 2. A couple tiny cystic densities are seen adjacent to the endometrium within the lower uterine segment on the longitudinal images. These might represent tiny nabothian cysts. 3. The right ovary was remarkable for a small 1.6 cm x 1.5 cm x 1.3 cm cyst. Otherwise, it appeared unremarkable. 4. Nonvisualization of the left ovary. 5. No free fluid is seen within the cul-de-sac.
--- NOTE | 2021-07-25 22:41 | PCM.CONS ---
History of Present Illness - Reason for Consult Chief Complaint: Symptomatic anemia Requesting Provider: ADEBAYO NORTON Consulting Provider: OLGA NEGRON MD History of Present Illness: is a 55 year old female. hx per chart review and d/w pt and at bedside. 55yo hasn't gone to her pcp in 5 years. presents with dizziness, hypotension, hgb 7.7. got 2 u up to 8.6 then down to 8.1. denies any hematochezia, melena, h ematemsis. today did have small vaginal bleeding--not enough to even saturate one pad. last lmp 10/2020 and then prior to that 12/2019. also a1c of 13. denies abdominal pain, change in bowels does have some constipation. never had a c scope or egd before. " is a 55 year old female pt of Dr. Norton, hasn't seen a physician in 5 years, who was admitted through ER with dizziness and hypotension, found to be anemic and transfused. Her hgb was 7.7 initially, and after 2 units PRBC was 8.6. This morning it is down to 8.1. She denies any melena or hematochezia but does take naproxen every morning. Her LMP was 10/22, but the previous one before that was 12/23. She was found to have A1c of 13.14, but denies any history of diabetes previously. She was exposed to a covid + student 8d ago; has tested negative x 2 since then. Fully vaccinated (re: covid). - Review of Systems Constitutional: Fever (6d ago to 101.8 and has continued intermittently.), Chills Respiratory: Cough, Short Of Breath Cardiac: Edema (LE if up a lot and with IV fluids; watches her salt) Abdominal/Gastrointestinal: Constipation (loos stools last night after having Mg) Neurological: Headache Psychological: No Anxiety, No Depression, No Suicidal Ideations, No Homicidal Ideations" Medications & Allergies Home Medications: Home Medication List Fexofenadine/Pseudoephedrine [Antonieta-D 24 Hour Tablet] 1 each PO DAILY 07/24/21 [History Confirmed 07/24/21] Allergies/Adverse Reactions: Allergies Allergy/AdvReac Type Severity Reaction Status Date / Time No Known Drug Allergies Allergy Verified 07/24/21 17:19 - Past Medical History Past Medical History: No - Female History Hx Last Menstrual Period: 10/26/2020 Are you now?: No - Past Surgical History Past Surgical History: Yes GI Surgical History: Cholecystectomy Musculskeletal Surgical Hx: Orthopedic Surgery Other Surgical History: jose, bone spurs from right - Social History Smoking Status: Never smoker Exposure to second hand smoke: No Alcohol: Rarely Drug Use: none - Physical Exam Vital Signs: Vital Signs - 24 hr Temp Pulse Resp BP Pulse Ox 07/25/21 20:00 99.1 F 115 H 18 102/67 96 07/25/21 16:00 99.3 F 116 H 20 110/70 95 07/25/21 12:00 97.3 F 112 H 18 111/83 95 07/25/21 07:22 96.8 F 80 18 112/59 97 07/25/21 04:00 96.9 F 98 H 20 95/54 95 07/25/21 00:00 97.5 F 108 H 27 H 96/58 94 L General Appearance: no apparent distress Neurologic Exam: alert, oriented x 3, normal mood/affect Eye Exam: eyes nml inspection, No scleral icterus Neck Exam: normal inspection Respiratory Exam: No respiratory distress Cardiovascular Exam: regular rate/rhythm Gastrointestinal/Abdomen Exam: soft, No tenderness, No distention, No mass, No guarding Pelvic Exam: not done Rectal Exam: deferred Extremity Exam: swelling Skin Exam: normal color, warm, dry Results - Labs Lab/Micro Results: Lab Results-Last 24 Hours 07/25/21 07/25/21 07/25/21 Range/Units 04:57 04:57 04:57 WBC 17.8 H (4.0-10.5) K/mm3 RBC 3.26 L (4.1-5.4) M/mm3 Hgb 8.1 L (12.0-16.0) gm/dl Hct 26.9 L (35-47) % MCV 82.5 (78-100) fl MCH 24.8 L (26-32) pg MCHC 30.1 L (32-36) g/dl RDW 15.9 H (11.5-14.0) % Plt Count 419 (150-450) K/mm3 MPV 9.0 (7.5-11.0) fl Gran % 87.7 H (36.0-66.0) % Eos # (Auto) 0.10 (0-0.5) Absolute Lymphs (auto) 1.49 (1.0-4.6) Absolute Monos (auto) 0.55 (0.0-1.3) Lymphocytes % 8.4 L (24.0-44.0) % Monocytes % 3.1 (0.0-12.0) % Eosinophils % 0.6 (0.00-5.0) % Basophils % 0.2 (0.0-0.4) % Absolute Granulocytes 15.63 H (1.4-6.9) Basophils # 0.04 (0-0.4) Sodium 129 L (137-145) mmol/L Potassium 4.4 D (3.5-5.1) mmol/L Chloride 99 (98-107) mmol/L Carbon Dioxide 17 L (22-30) mmol/L Anion Gap 17.7 H (5-15) MEQ/L BUN 26 H (7-17) mg/dL Creatinine 2.02 H (0.52-1.04) mg/dL Estimated GFR 27.4 ML/MIN Glucose 297 H (74-106) mg/dL POC Glucometer (74 to 106) mg/dL Calcium 8.6 (8.4-10.2) mg/dL Magnesium 1.6 (1.6-2.3) mg/dL Total Bilirubin 0.80 (0.2-1.3) mg/dL AST 22 (14-36) U/L ALT 16 (0-35) U/L Alkaline Phosphatase 230 H (38-126) U/L Serum Total Protein 7.1 (6.3-8.2) g/dL Albumin 3.2 L (3.5-5.0) g/dL Slides for Path Review YES 07/25/21 07/25/21 07/25/21 Range/Units 07:06 11:56 16:32 WBC (4.0-10.5) K/mm3 RBC (4.1-5.4) M/mm3 Hgb (12.0-16.0) gm/dl Hct (35-47) % MCV (78-100) fl MCH (26-32) pg MCHC (32-36) g/dl RDW (11.5-14.0) % Plt Count (150-450) K/mm3 MPV (7.5-11.0) fl Gran % (36.0-66.0) % Eos # (Auto) (0-0.5) Absolute Lymphs (auto) (1.0-4.6) Absolute Monos (auto) (0.0-1.3) Lymphocytes % (24.0-44.0) % Monocytes % (0.0-12.0) % Eosinophils % (0.00-5.0) % Basophils % (0.0-0.4) % Absolute Granulocytes (1.4-6.9) Basophils # (0-0.4) Sodium (137-145) mmol/L Potassium (3.5-5.1) mmol/L Chloride (98-107) mmol/L Carbon Dioxide (22-30) mmol/L Anion Gap (5-15) MEQ/L BUN (7-17) mg/dL Creatinine (0.52-1.04) mg/dL Estimated GFR ML/MIN Glucose (74-106) mg/dL POC Glucometer 253 H 306 H 322 H (74 to 106) mg/dL Calcium (8.4-10.2) mg/dL Magnesium (1.6-2.3) mg/dL Total Bilirubin (0.2-1.3) mg/dL AST (14-36) U/L ALT (0-35) U/L Alkaline Phosphatase (38-126) U/L Serum Total Protein (6.3-8.2) g/dL Albumin (3.5-5.0) g/dL Slides for Path Review 07/25/21 Range/Units 20:46 WBC (4.0-10.5) K/mm3 RBC (4.1-5.4) M/mm3 Hgb (12.0-16.0) gm/dl Hct (35-47) % MCV (78-100) fl MCH (26-32) pg MCHC (32-36) g/dl RDW (11.5-14.0) % Plt Count (150-450) K/mm3 MPV (7.5-11.0) fl Gran % (36.0-66.0) % Eos # (Auto) (0-0.5) Absolute Lymphs (auto) (1.0-4.6) Absolute Monos (auto) (0.0-1.3) Lymphocytes % (24.0-44.0) % Monocytes % (0.0-12.0) % Eosinophils % (0.00-5.0) % Basophils % (0.0-0.4) % Absolute Granulocytes (1.4-6.9) Basophils # (0-0.4) Sodium (137-145) mmol/L Potassium (3.5-5.1) mmol/L Chloride (98-107) mmol/L Carbon Dioxide (22-30) mmol/L Anion Gap (5-15) MEQ/L BUN (7-17) mg/dL Creatinine (0.52-1.04) mg/dL Estimated GFR ML/MIN Glucose (74-106) mg/dL POC Glucometer 365 H (74 to 106) mg/dL Calcium (8.4-10.2) mg/dL Magnesium (1.6-2.3) mg/dL Total Bilirubin (0.2-1.3) mg/dL AST (14-36) U/L ALT (0-35) U/L Alkaline Phosphatase (38-126) U/L Serum Total Protein (6.3-8.2) g/dL Albumin (3.5-5.0) g/dL Slides for Path Review Microbiology 07/24/21 17:20 Urine Culture - Preliminary Clean Catch Midstream GRAM NEGATIVE ID AND SENSITIVITY PENDING Accuchecks Date 07/25/21 Date 07/25/21 Date 07/25/21 Date 07/25/21 Time 22:00 - Radiology Impressions Radiology Exams & Impressions: Radiology Procedures Category Date Time Status ABDOMEN AND PELVIS W/0 CONTRAS [CT] Routine Exams 07/25/21 09:15 Completed PELVIS TRANS VAGINAL [US] Routine Exams 07/25/21 13:00 Completed Assessment/Plan (1) Anemia Current Visit: Yes Status: Acute Qualifiers: Anemia type: iron deficiency Iron deficiency anemia type: unspecified iron deficiency Qualified Code(s): D50.9 - Iron deficiency anemia, unspecified Assessment & Plan: 55yo female with anemia, uncontrolled dm2, no gross GIB, small amount of vaginal bleeding, is perimenopausal, US with 8mm endometrium. -repeat cbc in am. if hgb stable and still no gross GIB, would recommend follow up for EGD and c scope as an outpatient. -ppi empirically. -industrial relations specialist referral for the abnormal endometrial findings. Less than 1 pad today and isn't acutely bleeding. -if she drops her hgb or has gross GIB let us know we willl scope her inpatient. Code(s): D64.9 - ANEMIA, UNSPECIFIED
[2021-07-26] MEDS: Sodium Chloride 0.9% 1000 ML 1,000 ML IV SCH ×2 (05:22→11:45)
[2021-07-26 05:30] LABS: Hematocrit 25.9 % (35-47); Hemoglobin 7.9 gm/dl (12.0-16.0); Mean Corpuscular Hgb Concent. 30.5 g/dl (32-36); Mean Platelet Volume 9.1 fl (7.5-11.0); Platelet Count 394 K/mm3 (150-450); Red Blood Count 3.16 M/mm3 (4.1-5.4); White Blood Count 12.8 K/mm3 (4.0-10.5)
[2021-07-26 05:57] LABS: BILIRUBIN,TOTAL 0.6 mg/dL (0.2-1.3); Calcium 8.4 mg/dL (8.4-10.2); Creatinine 1 2.27 mg/dL (0.52-1.04); EST GLOMERULAR FILTRATION RATE 23.9 ML/MIN; Potassium 3.9 mmol/L (3.5-5.1); Total Protein 6.9 g/dL (6.3-8.2)
--- NOTE | 2021-07-26 08:10 | PCM.DS ---
Discharge Summary Date of Admission: 07/24/21 16:58 Admitting Physician: KONSTANTIN ROSE Consults: Consults on Case 07/25/21 08:59 Consult Surgery ROUTINE 07/25/21 09:14 Consult Surgery ROUTINE Primary Care Provider: ADEBAYO NORTON MARIA ELENA Allergies Allergies No Known Drug Allergies Allergy (Verified 07/24/21 17:19) Hospital Summary - Hospital Course Hospital Course: patient was admitted with new onset of anemia presumably upper gi source, newly diagnosed type 2 diabetes and kidney disease. she is stable and feeling much better after transfusion, h/h stable. minimal decrease likely dilutional, no active bleeding. - Vitals & Intake/Output Vital Signs: Vital Signs Temperature 98.2 F 07/26/21 07:45 Pulse Rate 95 H 07/26/21 07:45 Respiratory Rate 18 07/26/21 07:45 Blood Pressure 99/56 07/26/21 07:45 O2 Sat by Pulse Oximetry 96 07/26/21 07:45 Intake & Output: Intake & Output 07/23/21 07/24/21 07/25/21 07/26/21 11:59 11:59 11:59 11:59 Intake Total 1200 5063 Output Total 300 Balance 900 5063 Weight 149 kg 128.1 kg 128.1 kg - Lab Result Diagrams: 07/26/21 05:29 07/26/21 05:29 Lab Results-Last 24 Hrs: Lab Results-Last 24 Hours 07/24/21 07/25/21 07/25/21 Range/Units 17:20 04:57 11:56 WBC (4.0-10.5) K/mm3 RBC (4.1-5.4) M/mm3 Hgb (12.0-16.0) gm/dl Hct (35-47) % MCV (78-100) fl MCH (26-32) pg MCHC (32-36) g/dl RDW (11.5-14.0) % Plt Count (150-450) K/mm3 MPV (7.5-11.0) fl Sodium (137-145) mmol/L Potassium (3.5-5.1) mmol/L Chloride (98-107) mmol/L Carbon Dioxide (22-30) mmol/L Anion Gap (5-15) MEQ/L BUN (7-17) mg/dL Creatinine (0.52-1.04) mg/dL Estimated GFR ML/MIN Glucose (74-106) mg/dL POC Glucometer 306 H (74 to 106) mg/dL Calcium (8.4-10.2) mg/dL Total Bilirubin (0.2-1.3) mg/dL AST (14-36) U/L ALT (0-35) U/L Alkaline Phosphatase (38-126) U/L Serum Total Protein (6.3-8.2) g/dL Albumin (3.5-5.0) g/dL Urine Opiates Level NEGATIVE (NEGATIVE) Ur Methadone NEGATIVE (NEGATIVE) Urine Barbiturates NEGATIVE (NEGATIVE) Ur Phencyclidine (PCP) NEGATIVE (NEGATIVE) Urine Amphetamine POSITIVE (NEGATIVE) U Benzodiazepine Level NEGATIVE (NEGATIVE) Urine Cocaine NEGATIVE (NEGATIVE) Urine Marijuana (THC) NEGATIVE (NEGATIVE) Slides for Path Review YES 07/25/21 07/25/21 07/26/21 Range/Units 16:32 20:46 05:29 WBC 12.8 H (4.0-10.5) K/mm3 RBC 3.16 L (4.1-5.4) M/mm3 Hgb 7.9 L (12.0-16.0) gm/dl Hct 25.9 L (35-47) % MCV 82.0 (78-100) fl MCH 25.0 L (26-32) pg MCHC 30.5 L (32-36) g/dl RDW 16.0 H (11.5-14.0) % Plt Count 394 (150-450) K/mm3 MPV 9.1 (7.5-11.0) fl Sodium (137-145) mmol/L Potassium (3.5-5.1) mmol/L Chloride (98-107) mmol/L Carbon Dioxide (22-30) mmol/L Anion Gap (5-15) MEQ/L BUN (7-17) mg/dL Creatinine (0.52-1.04) mg/dL Estimated GFR ML/MIN Glucose (74-106) mg/dL POC Glucometer 322 H 365 H (74 to 106) mg/dL Calcium (8.4-10.2) mg/dL Total Bilirubin (0.2-1.3) mg/dL AST (14-36) U/L ALT (0-35) U/L Alkaline Phosphatase (38-126) U/L Serum Total Protein (6.3-8.2) g/dL Albumin (3.5-5.0) g/dL Urine Opiates Level (NEGATIVE) Ur Methadone (NEGATIVE) Urine Barbiturates (NEGATIVE) Ur Phencyclidine (PCP) (NEGATIVE) Urine Amphetamine (NEGATIVE) U Benzodiazepine Level (NEGATIVE) Urine Cocaine (NEGATIVE) Urine Marijuana (THC) (NEGATIVE) Slides for Path Review 07/26/21 07/26/21 Range/Units 05:29 07:14 WBC (4.0-10.5) K/mm3 RBC (4.1-5.4) M/mm3 Hgb (12.0-16.0) gm/dl Hct (35-47) % MCV (78-100) fl MCH (26-32) pg MCHC (32-36) g/dl RDW (11.5-14.0) % Plt Count (150-450) K/mm3 MPV (7.5-11.0) fl Sodium 125 L (137-145) mmol/L Potassium 3.9 (3.5-5.1) mmol/L Chloride 97 L (98-107) mmol/L Carbon Dioxide 16 L* (22-30) mmol/L Anion Gap 15.0 (5-15) MEQ/L BUN 31 H (7-17) mg/dL Creatinine 2.27 H (0.52-1.04) mg/dL Estimated GFR 23.9 ML/MIN Glucose 279 H (74-106) mg/dL POC Glucometer 276 H (74 to 106) mg/dL Calcium 8.4 (8.4-10.2) mg/dL Total Bilirubin 0.60 (0.2-1.3) mg/dL AST 16 (14-36) U/L ALT 14 (0-35) U/L Alkaline Phosphatase 212 H (38-126) U/L Serum Total Protein 6.9 (6.3-8.2) g/dL Albumin 3.0 L (3.5-5.0) g/dL Urine Opiates Level (NEGATIVE) Ur Methadone (NEGATIVE) Urine Barbiturates (NEGATIVE) Ur Phencyclidine (PCP) (NEGATIVE) Urine Amphetamine (NEGATIVE) U Benzodiazepine Level (NEGATIVE) Urine Cocaine (NEGATIVE) Urine Marijuana (THC) (NEGATIVE) Slides for Path Review Micro Results-Entire Visit: Microbiology 07/24/21 17:20 Urine Culture - Final Clean Catch Midstream Klebsiella Pneumoniae#2 Klebsiella Pneumoniae Accuchecks Date 07/25/21 Date 07/25/21 Date 07/25/21 Date 07/25/21 Time 22:00 - Radiology Exams Ordered Rad Exams-Entire Visit: Radiology Procedures Category Date Time Status ABDOMEN AND PELVIS W/0 CONTRAS [CT] Routine Exams 07/25/21 09:15 Completed PELVIS TRANS VAGINAL [US] Routine Exams 07/25/21 13:00 Completed Discharge Exam General Appearance: obese Neurologic Exam: alert, oriented x 3 Respiratory Exam: normal breath sounds, lungs clear, No respiratory distress Cardiovascular Exam: regular rate/rhythm, normal heart sounds Gastrointestinal/Abdomen Exam: soft, No tenderness, No mass Extremity Exam: normal inspection, normal range of motion Skin Exam: normal color, warm, dry Final Diagnosis/Problem List - Final Discharge Diagnosis/Problem (1) Anemia Current Visit: Yes Status: Acute Code(s): D64.9 - ANEMIA, UNSPECIFIED (2) Diabetes mellitus type II, uncontrolled Current Visit: Yes Status: Acute Code(s): E11.65 - TYPE 2 DIABETES MELLITUS WITH HYPERGLYCEMIA (3) Renal insufficiency Current Visit: Yes Status: Acute (4) UTI (urinary tract infection) Current Visit: Yes Status: Acute Code(s): N39.0 - URINARY TRACT INFECTION, SITE NOT SPECIFIED - Discharge Disposition: Home, Self-Care Condition: Good Prescriptions: New Blood-Glucose Meter [Accu-Chek] 1 each UD #1 kit Docusate Sodium 100 mg [Colace 100 MG] 100 mg PO BID #60 cap Ferrous Sulfate 325 mg [Feosol 325 mg] 325 mg PO BID #60 tablet Metformin HCl 500 mg [Glucophage 500 MG] 500 mg PO BIDWM #60 tablet Cephalexin Mh 500 mg [Keflex 500 mg] 500 mg PO QID #20 Insulin Glargine,Hum.rec.anlog [Lantus Solostar] 20 unit SQ DAILY #6 ml PANTOPRAZOLE 40 mg Tablet [Protonix 40MG Tablet] 40 mg PO QPM #30 tab Continue Fexofenadine/Pseudoephedrine [Antonieta-D 24 Hour Tablet] 1 each PO DAILY Outpatient Orders: CBC W DIFF Time Frame: 1 Week, Facility: [facility], Location: LABORATORY Follow up with: ADEBAYO NORTON MD [Primary Care Provider] - 1 Week LAMONT SUMMERS [CONSULTING PHYSICIAN] - Call for Appointment ([place] office) OLGA NEGRON MD [ACTIVE STAFF] - Call for Appointment ANDRE STEVENSON DO [ACTIVE STAFF] - Call for Appointment (anemia, thickened endometrial strip, perimenopausal)
[2021-07-26] MEDS: HUMULIN R SQ PRN ×4 (08:53→21:08)
[2021-07-26] MEDS: CLARITIN 10 MG PO SCH (09:53)
[2021-07-26] MEDS: ROCEPHIN 1 Gm-D5w 50 ml Bag** 1 G/50 ML IVPB IV SCH (09:53)
[2021-07-26] MEDS: PROTONIX 40 MG IV IV SCH (09:54)
[2021-07-26 17:47] VITALS: O2SAT 96
[2021-07-26 20:12] VITALS: BP 117/72; PULSE 112
== END 2021-07-26 21:30 | disposition home or self-care (01) | DRG 812 ==
LOC: ED 10:52 → MED SURG 16:58
PROVIDERS: ADMIT Family Medicine; ATTEND Family Medicine
DX: D50.9 Iron deficiency anemia, unspecified (principal); E87.1 Hypo-osmolality and hyponatremia; N39.0 Urinary tract infection, site not specified; D64.9 Anemia, unspecified; R42 Dizziness and giddiness; E87.6 Hypokalemia; E83.42 Hypomagnesemia; I95.9 Hypotension, unspecified; E11.65 Type 2 diabetes mellitus with hyperglycemia; N93.9 Abnormal uterine and vaginal bleeding, unspecified; N28.9 Disorder of kidney and ureter, unspecified; Z79.899 Other long term (current) drug therapy; Z79.4 Long term (current) use of insulin; Z20.822 Contact with and (suspected) exposure to COVID-19
CPT/HCPCS: 36000; 36415; 36430; 74176; 76830; 80053; 80307; 81001; 82947; 83036; 83735; 84484; 85014; 85018; 85025; 85027; 86850; 86900; 86901; 86922; 87077; 87086; 87186; 93005; 96360; 99285; 99291; J0696; J1815; P9016; U0003; A9270-GY

== ENCOUNTER 2021-10-01 08:39 | Day surgery (SDC) | payer OTHER ==
--- NOTE | 2021-09-28 10:05 | HP ---
PROCEDURE DATE: 10/01/2021 HISTORY OF PRESENT ILLNESS: Patient is a 55 y/o with bloody stools, no gross bloody stools, no abdominal pain, no change in bowel movements except for the effects from iron she is taking. Had anemia. She is in need of upper and lower endoscopy for further evaluation. PAST MEDICAL HISTORY: Diabetes. CURRENT MEDICATIONS: Fexofenadine. ALLERGIES: NKDA. PAST SURGICAL HISTORY: History of cholecystectomy in the past. Some orthopedic surgery in the past and bone spurs removed. FAMILY HISTORY: Negative for colon cancer. Negative for stomach cancer. Breast cancer. SOCIAL HISTORY: No smoking or alcohol abuse. REVIEW OF SYSTEMS: 14 systems reviewed pertinent for history of some morbid obesity. No chest pain or palpitations. Other systems negative or noncontributory other than above and per preadmission questionnaire. PHYSICAL EXAMINATION: GENERAL: No acute distress. HEENT: Sclerae nonicteric. NECK: No JVD. CHEST: Equal excursion. Nonlabored breathing. CVS: Regular rate and rhythm. ABDOMEN: Soft. Morbid obesity. No peritoneal signs. EXTREMITIES: No cyanosis. NEURO: Alert, moving extremities symmetrically. PSYCH: Full mood and affect. RECTAL: Deferred until time of endoscopy exam. IMPRESSION: 1. ANEMIA. Unclear etiology. Needs upper and lower endoscopy for further evaluation. Shown the risk sheet. Explained the procedure in detail, but not limited to, bleeding; infection; risk of bowel injury or perforation possibly requiring open procedure; risk of missed or nondiagnosis or incomplete exam possibly requiring barium or other studies or procedures or referrals; general risks of anesthesia or sedation; risk of bowel prep, but not limited to; risk of cardiopulmonary event or respiratory insufficiency due to her body habitus. She understands and agrees to the planned procedure. Will proceed with EGD/colonoscopy as an outpatient.
[~2021-10-01 08:39] MED LIST: Lactated Ringers 1,000 ML IV SCH
[2021-10-01] MEDS ORDERED: Lactated Ringers 1,000 ML IV ONE (09:14)
[2021-10-01] MEDS ORDERED: Versed 2 MG/2 ML Injection ONE (10:33)
[2021-10-01] MEDS ORDERED: DIPRIVAN 200 MG/20 ML IV ONE ×3 (10:33→11:09)
[2021-10-01 12:06] VITALS: BP 134/80; PULSE 85; O2SAT 97
--- NOTE | 2021-10-01 15:12 | OP ---
SURGERY DATE/TIME: 10/01/2021 1050 PREOPERATIVE DIAGNOSIS: Anemia of unclear etiology. POSTOPERATIVE DIAGNOSES: 1) ASA Class III. 2) Erosive gastritis. 3) Colon polyp. 4) Diverticulosis. 5) Fair bowel prep. PROCEDURES: 1) EGD with cold biopsy of antrum to evaluate for Helicobacter pylori. 2) Cold biopsy body of proximal stomach inflammation. 3) Cold biopsy distal esophagus. 4) Colonoscopy complete to cecum with hot snare polypectomy ascending colon polyp, transverse colon polyp, sigmoid colon polyp. SURGEON: Dr. Flex Hernandez. ANESTHESIA: MAC. ESTIMATED BLOOD LOSS: Minimal. INDICATIONS: As noted above. Risks and benefits explained in detail and not limited to and consent obtained. DESCRIPTION OF PROCEDURE AND FINDINGS: The patient is taken to the operating room. MAC anesthesia introduced. After official time out and no disagreement with planned procedure, bite block positioned. Video gastroscope easily passed down through the patent pylorus to the junction to the junction of second and third portion of the duodenum. Third, second and first portion of the duodenum grossly unremarkable. The scope passed in the stomach and had some mild erosive gastritis. Cold biopsy taken to evaluate for Helicobacter pylori. Good hemostasis noted. On retroflex the gastroesophageal junction snug against the scope. No signs of any large hiatal hernia. The scope straightened. Gastroesophageal junction was about 38 cm. Z-line was fairly crisp. Cold biopsy taken of distal esophageal erythema. There was no evidence of any deep erosions or masses. The scope was carefully withdrawn. Again, no large ulcers or masses were noted on the upper endoscopy. Attention is then turned to the colonoscopy. Digital rectal exam did not reveal any rectal masses. Video colonoscope inserted and passed up through the slightly tortuous sigmoid, descending, transverse colon and ascending colon around to the cecum. Appendiceal orifice and valve were well visualized and photo documented. Scope is then carefully withdrawn over the next the next 8 minutes. There was a medium-sized polyp, 6 to 8 mm in size, ascending colon removed with hot snare polypectomy with brief bursts of cautery. Good hemostasis noted. Another polyp one in the transverse colon, one in the sigmoid colon all removed with hot snare polypectomy about 7 mm in size as well. Good hemostasis noted. She had some diverticulosis. Prep overall was fair with some liquidy semisolid and a few solid stool chunks just limiting the exam for small lesion. No signs of any large polyps, masses or obstructing lesions. The scope is withdrawn. Findings discussed with the family out in the waiting area. I will see her back in the office next week to go over the results.
== END 2021-10-01 12:20 | disposition home or self-care (01) ==
LOC: SDC 08:39
PROVIDERS: ATTEND Surgery
DX: K29.00 Acute gastritis without bleeding (principal); K57.90 Diverticulosis of intestine, part unspecified, without perforation or abscess without bleeding; E11.9 Type 2 diabetes mellitus without complications; D12.2 Benign neoplasm of ascending colon; D12.5 Benign neoplasm of sigmoid colon; D12.3 Benign neoplasm of transverse colon
CPT/HCPCS: 82947; 88305; J2250; J2704

== ENCOUNTER 2022-09-23 09:50 | Emergency (ER) | payer OTHER ==
[2022-09-23 10:01] VITALS: O2SAT 98
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
[2022-09-23 10:56] VITALS: BP 138/85; PULSE 90
[2022-09-23] MEDS ORDERED: NORCO 5/325 MG ONE (10:59)
[2022-09-23] MEDS: NORCO 5/325 MG PO ONE (11:00)
--- NOTE | 2022-09-23 11:05 | XRAY ---
Indication: Pain following trauma. Comparison: None 2 view right humerus demonstrates nondisplaced nonangulated acute comminuted fracture humeral head/neck. No other bony, articular, or soft tissue abnormalities.
== END 2022-09-23 11:10 | disposition home or self-care (01) ==
LOC: ED 09:50
DX: S42.291A Other displaced fracture of upper end of right humerus, initial encounter for closed fracture (principal); V40.6XXA Car passenger injured in collision with pedestrian or animal in traffic accident, initial encounter; M79.601 Pain in right arm; E11.9 Type 2 diabetes mellitus without complications; Z79.4 Long term (current) use of insulin; Z79.84 Long term (current) use of oral hypoglycemic drugs; Z79.899 Other long term (current) drug therapy; Z79.891 Long term (current) use of opiate analgesic
CPT/HCPCS: 73060; 99283; A9270-GY